=== PATIENT | male | born 1955 | race Caucasian/White ===

== ENCOUNTER → 2018-05-25 | Outpatient (CLI) | payer MEDICARE | END | disposition home or self-care (01) | LOC: LAB 16:18 → LAB SHORT 16:18 | DX: Z48.02 Encounter for removal of sutures (principal); L08.9 Local infection of the skin and subcutaneous tissue, unspecified | CPT/HCPCS: 87070; 87205 ==

== ENCOUNTER → 2024-12-28 | Outpatient (CLI) | payer MEDICARE ==
[2024-12-28 14:49] LABS: Stool Occult Bld Immuno 1 Negative (NEGATIVE)
== END | disposition home or self-care (01) ==
LOC: LAB 11:00 → LAB SHORT 11:00 → LAB FUT 11-28 13:25
PROVIDERS: Nurse Practitioner Family
DX: Z12.11 Encounter for screening for malignant neoplasm of colon (principal); Z13.6 Encounter for screening for cardiovascular disorders; N18.31 Chronic kidney disease, stage 3a; E03.4 Atrophy of thyroid (acquired)
CPT/HCPCS: G0328